=== PATIENT | male | born 1940 | race Caucasian/White ===

== ENCOUNTER 2017-09-08 12:44 | Day surgery (SDC) | payer MEDICARE ==
[2017-09-08 13:21] VITALS: BP 171/80; PULSE 76; RESP 16; TEMP 98; O2SAT 99
[2017-09-08 13:50] VITALS: BP 161/77; PULSE 67; RESP 16; O2SAT 99
--- NOTE | 2017-09-08 14:03 | RADRPT ---
EXAM DATE/TIME: 09/08/2017 13:10 [place] COMPARISON: No previous studies available for comparison. EXTERNAL COMPARISON: [facility], CT SOFT TISSUE NECK,W/ CONTRAST, Jul 14 2017. INDICATIONS : Enlarged left neck nodule. MEDICAL HISTORY : Hypercholesterolemia. Hypertension. Chronic bronchitits. Skin cancer. Glaucoma. Anticoagulant thera py, Aspirin 81mg. SURGICAL HISTORY : Tonsillectomy. [place] teeth removal. Colonoscopy. ENCOUNTER: Initial ACUITY: 3 months PAIN SCORE: 0/10 LOCATION: Left neck ORGAN: Left neck nodule. SPECIMENS: Two core specimen(s) submitted for pathologic evaluation. DEVICE: 18 gauge Temno needle Post procedure scanning reveals no hematoma or other complication. The possibility does exist that the tissue obtained will be non-diagnostic. If the sample is non-andrew gnostic a repeat biopsy or surgical biopsy may need to be performed. TECHNIQUE: 1. Ultrasound guidance for needle core biopsy. 2. Needle core biopsy. I reviewed the patient's outside CT scan of the neck. The risks, benefits and alternatives to the pro cedure were explained and verbal and written consent was obtained. The site was prepped in sterile f ashion. Full sterile technique was used, including cap, mask, sterile gloves and gown and a large st erile sheet. Hand hygiene and 2% chlorhexidine and/or betadine/alcohol prep was [facility]. The skin and subcutaneous tissues were infiltrated with local anesthetic solution. Sterile gel and sterile probe cover were utilized for ultrasound guidance. With the patient on the ultrasound table, images were obtained. An 18 gauge Temno core needle was advanced into the identified target and 2 specimens as above obtain ed and submitted for pathologic evaluation. The patient tolerated the procedure well and left the ultrasound suite in stable condition. CONCLUSION: Uncomplicated ultrasound guided core needle biopsy of a fungating left neck mass. Jonnathan Weaver Jr., MD on September 08, 2017 at 13:59 Board Certified Radiologist. This report was verified electronically.
[2017-09-08 14:05] VITALS: BP 145/76; PULSE 67; RESP 16; O2SAT 99
[2017-09-08] MEDS ORDERED: LIDOCAINE HCL 1% 20 ML VIAL ONE (14:12)
== END 2017-09-08 14:15 | disposition home or self-care (01) ==
LOC: HRAD 12:44 → HRIP 12:46 → HRAD 14:15
PROVIDERS: ATTEND Otolaryngology Otolaryngology/Facial Plastic Surgery
DX: C49.0 Malignant neoplasm of connective and soft tissue of head, face and neck (principal); E78.00 Pure hypercholesterolemia, unspecified; I10 Essential (primary) hypertension; J42 Unspecified chronic bronchitis; H40.9 Unspecified glaucoma; Z79.01 Long term (current) use of anticoagulants
CPT/HCPCS: 20206; 76942; 88305; 88307